=== PATIENT | male | born 1960 | race Caucasian/White ===

== ENCOUNTER 2020-03-16 06:51 | Emergency (ER) | payer OTHER ==
[~2020-03-16] VITALS: Ht 182.9 cm; Wt 78.2 kg
[2020-03-16] MEDS ORDERED: CLINDAMYCIN PMX 600MG/50ML 50 ML IV ONE (08:00)
[2020-03-16] MEDS ORDERED: CEFAZOLIN PMX 1GM/50ML 50 ML IV ONE (08:00)
[2020-03-16] MEDS ORDERED: SODIUM CHLORIDE FLUSH 10ML SYR IVF ONE (08:00)
[2020-03-16] MEDS: CEFAZOLIN PMX 2GM/50ML 50 ML IVPB SCH ×2 (09:05→09:16)
--- NOTE | 2020-03-16 09:15 | NUR ---
AFTER ENTERING ALLERGIES, ORDERED ANCEF FLAGGED POSSIBLE REACTION. CALLED PHARMACY TO CONFIRM, STATED TO VERIFY DOCTOR WANTS ABX RAN THERE IS A CHANCE OF CROSS REACTION. EXPLAINED THIS TO PT ERP AND ERPA, STATED OKAY TO GIVE ORDERED ABX.
[2020-03-16 10:45] VITALS: BP 108/75
--- NOTE | 2020-03-16 10:54 | NUR ---
TASK RN NOTE: DC ORDERS RECEIVED. IV ABX COMPLETED. PIV DC'D WITH TIP INTACT. PT GIVEN DC INSTRUCTIONS AND SCRIPT, EDUCATED REGARDING ORTHO F/U AND RX FOR CLINDAMYCIN. PT A&O, RESPS EVEN AND UNLABORED, AMBULATORY TO DC DESK WITH STEADY GAIT.
== END 2020-03-16 10:55 | disposition home or self-care (01) ==
LOC: ED 07:27
DX: M96.830 Postprocedural hemorrhage of a musculoskeletal structure following a musculoskeletal system procedure (principal); L03.113 Cellulitis of right upper limb; J45.909 Unspecified asthma, uncomplicated; Z21 Asymptomatic human immunodeficiency virus [HIV] infection status
CPT/HCPCS: 96365; 96366; 99284; J0690